=== PATIENT | female | born 1970 | race Caucasian/White ===

== ENCOUNTER → 2017-06-05 | Outpatient (CLI) | payer OTHER ==
[~2017-06-05] VITALS: Ht 154.9 cm; Wt 77.9 kg
[~2017-06-05] MED LIST: ASPIR 8181 MG PO; IBUPROFEN 200200 M1 PO; MOBIC15 MG PO; VOLTAREN GEL 1100 GM TOP
--- NOTE | ~2017-06-05 | HPC ---
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 I have prior treated her for SI mediated and piriformis mediated left-sided pain. That was back in June 2016. She notes that pain is generally well controlled, but she has recurrent pain in right foot. She had prior been seen by Dr. Espinoza Reyes back in March 2015 for some left ankle pain, this right-sided pain is different. She has point tenderness in the right mid foot lateral aspect, she has swelling in this area. She notes it has been painful for about 3-4 months. She states pain is becoming quite uncomfortable to the point she is having trouble walking. She has a small ballottable area compatible with a ganglion cyst. Plantarflexion and dorsiflexion is adequate. Inversion significantly exacerbates pain. Lower extremity strength is otherwise symmetric. ASSESSMENT: Myofascial pain in right foot, concern for ganglion cyst, right mid foot. History of sacroiliac mediated pain, piriformis syndrome and left ankle pain all historic and noncontributory at this time. RECOMMENDATIONS: 1. We will refer to Dr. Ivan Frederick for consideration for surgical intervention regarding the right foot mass (ganglion cyst?). Prescription generated for topical Voltaren gel. 2. Trigger point injection today times 2, right lateral foot. PROCEDURE NOTE: After written informed consent was obtained, the patient was placed in the supine position. Skin overlying the lateral aspect of the foot was cleansed with ChloraPrep. A 25-gauge needle was used to inject 20 mg triamcinolone plus 4 mL of 0.5% preservative-free bupivacaine into and around the trigger points. Ice was applied to the area. The patient was discharged in good and stable condition. Again, we will have her follow up with Dr. Ivan Frederick for more definitive intervention of what appears to be ganglion cyst in this area. By: [id number] Charan Reyes DO /nt
[2017-06-05 12:43] VITALS: BP 129/95
== END | disposition home or self-care (01) ==
LOC: PAIN 07:20
DX: M79.1 Myalgia (principal); M25.571 Pain in right ankle and joints of right foot; R22.41 Localized swelling, mass and lump, right lower limb; M53.3 Sacrococcygeal disorders, not elsewhere classified; G57.00 Lesion of sciatic nerve, unspecified lower limb; Z79.82 Long term (current) use of aspirin; Z88.8 Allergy status to other drugs, medicaments and biological substances

== ENCOUNTER → 2017-11-16 | Outpatient (CLI) | payer OTHER | LOC: RAD 13:26 | DX: Z12.31 Encounter for screening mammogram for malignant neoplasm of breast (principal) ==

== ENCOUNTER → 2018-01-17 | Outpatient (CLI) | payer OTHER | LOC: MRI 07:56 | DX: M25.571 Pain in right ankle and joints of right foot (principal) ==

== ENCOUNTER → 2019-02-14 | Outpatient (CLI) | payer OTHER | LOC: RAD 14:00 | DX: Z12.31 Encounter for screening mammogram for malignant neoplasm of breast (principal) ==

== ENCOUNTER → 2019-07-16 | Outpatient (CLI) | payer OTHER | LOC: CAT 10:16 | DX: Z13.6 Encounter for screening for cardiovascular disorders (principal); E78.00 Pure hypercholesterolemia, unspecified; I25.10 Atherosclerotic heart disease of native coronary artery without angina pectoris ==

== ENCOUNTER → 2020-06-10 | Outpatient (CLI) | payer OTHER | LOC: RAD 09:38 | DX: Z12.31 Encounter for screening mammogram for malignant neoplasm of breast (principal) ==

== ENCOUNTER → 2021-08-20 | Outpatient (CLI) | payer OTHER | LOC: BC 10:53 | PROVIDERS: ATTEND Family Medicine | DX: Z12.31 Encounter for screening mammogram for malignant neoplasm of breast (principal) ==

== ENCOUNTER → 2021-09-21 | Outpatient (CLI) | payer OTHER ==
[2021-09-21 11:55] LABS: URINE BILIRUBIN NEGATIVE (Negative); URINE BLOOD NEGATIVE (Negative); URINE COLOR YELLOW; URINE GLUCOSE-RANDOM* NEGATIVE (Negative); URINE KETONES NEGATIVE (Negative); URINE LEUKOCYTES-REFLEX NEGATIVE (Negative); URINE NITRITE-REFLEX NEGATIVE (Negative); URINE PROTEIN (DIPSTICK) NEGATIVE (Negative); URINE SPECIFIC GRAVITY 1.025 (1.005-1.035); URINE UROBILINOGEN 0.2 E.U./dl (0.2-1.0)
[2021-09-21 11:57] LABS: ABSOLUTE NEUTROPHILS 4.3 thou/uL (1.4-8.2); BASOPHILS 0.4 % (0.0-2.0); EOSINOPHILS 4.6 % (0.0-3.0); HEMATOCRIT 47.5 % (37.0-47.0); LYMPHOCYTES 38.1 % (24.0-44.0); MCH 30.3 pg (26.0-34.0); MCHC 33.7 g/dL (28.0-37.0); MCV 89.6 fL (80.0-100.0); MONOCYTES 6.6 % (1.0-8.0); PLATELET COUNT 320 thou/uL (150-400); POLYS 50.3 % (36.0-66.0); RDW 12.3 % (10.5-14.5); WBC 8.6 thou/uL (4.0-11.0)
[2021-09-21 11:58] LABS: URINE CLARITY HAZY
[2021-09-21 12:16] LABS: ALBUMIN 4.2 g/dL (3.4-5.0); ANION GAP 6 mmol/L (7-16); BUN 21 mg/dL (7-18); CALCIUM 9.7 mg/dL (8.5-10.1); CHLORIDE 105 mmol/L (98-107); CHOLESTEROL 270 mg/dL (<200); CO2 28 mmol/L (21-32); CREATININE 0.9 mg/dL (0.6-1.0); GLUCOSE 86 mg/dL (74-106); HDL CHOLESTEROL 61 mg/dL (>40); LDL CHOLESTEROL 187 mg/dL (<100); POTASSIUM 4.4 mmol/L (3.5-5.1); SGOT 19 U/L (15-37); SGPT 20 U/L (30-65); SODIUM 139 mmol/L (136-145); TC:HDL 4.4 Ratio (Not establshd); TOTAL BILIRUBIN 0.4 mg/dL (0.2-1.0); TRIGLYCERIDE 114 mg/dL (<150); VLDL 23 mg/dL (<40)
== END ==
LOC: LAB 10:23
PROVIDERS: ATTEND Family Medicine
DX: Z00.00 Encounter for general adult medical examination without abnormal findings (principal)

== ENCOUNTER → 2021-11-12 | Outpatient (CLI) | payer OTHER | LOC: MRI 07:42 | PROVIDERS: ATTEND Family Medicine | DX: M50.123 Cervical disc disorder at C6-C7 level with radiculopathy (principal); M50.122 Cervical disc disorder at C5-C6 level with radiculopathy; M50.121 Cervical disc disorder at C4-C5 level with radiculopathy; M47.22 Other spondylosis with radiculopathy, cervical region; M48.02 Spinal stenosis, cervical region ==

== ENCOUNTER → 2021-12-07 | Outpatient (CLI) | payer OTHER ==
[~2021-12-07] VITALS: Ht 154.9 cm; Wt 63.5 kg
[~2021-12-07] MED LIST changes: +ADDERALL 20 MG20 MG PO; +ADDERALL XR 2020 MG PO
--- NOTE | ~2021-12-07 | HPC ---
[facility] [address] [address] PAIN MANAGEMENT CONSULTATION Name: LISA GRANADOS Room #: REG [facility] MSherron.#: [id number] Admission: 12/07/21 Attend Phys: Espinoza Reyes DO Discharge: Date of : 74 Report #: [id number] THIS REPORT FOR: cc: Panchito Polk MD,Espinoza Gallo MD, DO ~ cc: Panchito Polk MD DATE OF SERVICE: 12/07/2021 REFERRING PHYSICIAN: Panchito Polk MD CHIEF COMPLAINT: Left hand numbness. HISTORY OF PRESENT ILLNESS: As you know, the patient is a very pleasant 51-year-old female who reports a longstanding history of progressively worsening left hand pain and numbness and tingling. She indicates that her pain intensity began to increase in 09/2021, again no inciting injury or trauma that had led to symptom development. 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 She sought evaluation through her primary care physician who was also concerned of cervical radiculopathy. The patient was then sent on to imaging where she underwent MRI of the cervical spine. There were some changes noted in the cervical imaging study that prompted a referral on to our clinic as she was not improving with conservative treatment. She has not tried cock-up splints. She has not tried any topical agents to the area. She has not been involved in any formalized physical therapy. She denies injury or trauma to the area that may have caused symptom development. The patient reports her pain is intermittent in nature. She describes the pain as shooting, aching, throbbing, gnawing sharp, tender, numbness and tingling. Places current pain score at 2/10. Daily average anywhere up to 4/10, worst pain has been as 8/10. This is specifically when the patient is utilizing the left upper extremity with flexion of the wrist. She indicates that pain is exacerbated with certain activities, improves with discontinuation of movement of the left wrist. She has been referred to our service to discuss treatment options for left hand numbness and tingling and periodic left forearm numbness and tingling. PAST MEDICAL HISTORY: History of vertigo. PAST SURGICAL HISTORY: 1. Posterior cervical diskectomy. 2. Breast augmentation. [address]. [place] [address] PAIN MANAGEMENT CONSULTATION Name: LISA GRANADOS REMINGTON Room #: REG SHERIF Romero#: [id number] Admission: 12/07/21 Attend Phys: Espinoza Reyes DO Discharge: Date of : 74 Report #: [id number] SOCIAL HISTORY: The patient denies tobacco use. Denies IV or illicit drug use. Admits to an occasional alcohol beverage. She is an process controls technician by [employer]. She is working, not receiving workmen's compensation nor is she trying to obtain disability benefits. She is not in litigation in regards to pain. She is unaccompanied at today's visit. REVIEW OF SYSTEMS: Positive for night sweats, fatigue and weakness, wearing corrective eyewear, blurred and double vision, hearing loss with tinnitus, left hand numbness and tingling from the wrist to the hand itself. All other review of systems negative per 12-point review of systems other than those listed in history of present illness. ALLERGIES: No reported drug allergies. CURRENT MEDICATIONS: Adderall XR 20 mg once a day. IMAGING: MRI cervical spine obtained 11/12/2021 shows C1-C2 unremarkable, C2-C3 unremarkable, C3-C4 unremarkable, C4-C5 shows mild diffuse disk bulge, bilateral uncovertebral degenerative changes, left foraminal area is widely patent. There is mild narrowing of the right neural foramen. C5-C6 shows posterior left focal disk protrusion causing mass effect upon the anterior left aspect of the canal, central canal dimension is maintained. There is narrowing of the neural foramen bilaterally. Uncovertebral degenerative changes noted with moderately severe narrowing. Focal disk protrusion anteriorly on the left, which causes mass effect upon the left neural foramen. C6-C7 shows diffuse disk bulge, asymmetric component, greater to the left. Central canal is maintained. Mild right foraminal encroachment. No left encroachment. C7-T1 unremarkable. PHYSICAL EXAMINATION: VITAL SIGNS: Blood pressure 122/78, pulse is 65, respiratory rate 14 and unlabored. The patient 100% on room air. Height 5 feet 1 inch tall, weight 140 pounds, BMI calculated 26.5. GENERAL: Well-developed, well-nourished, well-hydrated 51-year-old female appearing stated age, pain is rated today at around 2-8/10 depending on activity. HEENT: Normocephalic, atraumatic. Pupils equal, round and responsive. She is wearing a mask in compliance with COVID-19 regulations and hospital policies. LUNGS: Clear, no wheeze, rhonchi or rales. CARDIOVASCULAR: Regular. No appreciable gallop, no rub. ABDOMEN: Soft. EXTREMITIES: Show no clubbing, no cyanosis, no edema. MUSCULOSKELETAL: Upper extremity strength equal and symmetrical 5/5. Muscle bulk and tone is equal and symmetrical in upper extremities including the intrinsic muscles of the hand bilaterally and thenar and hypothenar eminences. 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 Tinel sign is positive on the left, negative [facility] [address] [place] [address] PAIN MANAGEMENT CONSULTATION Name: LISA GRANADOS REMINGTON Room #: REG [facility] Rogelio.#: [id number] Admission: 12/07/21 Attend Phys: Espinoza Reyes DO Discharge: Date of : 74 Report #: [id number] right. Phalen's sign is positive on the left, negative right. Spurling's test is negative bilaterally. She is intact to light touch from C5 through T1 dermatomes. ASSESSMENT: 1. Carpal tunnel of the left upper extremity. 2. Peripheral neuropathy of the left upper extremity. 3. Cervical spondylosis without definitive radiculopathy. 4. Displacement of cervical intervertebral disk without definitive radiculopathy. 5. Neural foraminal stenosis of the cervical spine without definitive radiculopathy. PLAN: 1. Based on today's physical exam, the history the patient provides, the distribution of symptoms the patient is experiencing pain within currently and the provocating factors that make her symptoms worse as well as the descriptors she uses in regards to pain, the likely source of this pain is carpal tunnel syndrome. The patient has been advised that her symptoms do appear to be carpal tunnel in origin by other physicians she has discussed her case with. She has positive Tinel's and Phalen's sign on the left. There is no radicular component to the patient's symptoms that was elicited with physical exam today. The patient is denying any current neck or left upper extremity symptoms and she has had no proximal arm pain, but has had only distal symptoms radiating from the wrist joint towards the hand and then intermittently with retrograde towards the elbow, but not to the upper arm. Given these findings and physical exam and history she has provided, it does appear that her symptoms are related to carpal tunnel syndrome. We would recommend the following treatment. 2. We recommend cock-up splints to be worn in the evening hour on the left upper extremity. She can obtain these cock-up splints from any of her local pharmacies or through [employer]. We recommend she begin that treatment immediately. She can obtain these devices easily [id number]. There is no reason for a prescription to be written. 3. We discussed the possibility of starting medication, though given the findings and physical exam, oral medications might be met with side effects, specifically the neuropathic medications amitriptyline, nortriptyline, Cymbalta, Lyrica or gabapentin. We will recommend topical agents at this point directly to the area that in conjunction with the cock-up splinting should improve the carpal tunnel problem. 4. The patient can apply topical Salonpas or Voltaren 1% diclofenac solution to the area. This should be done likely 3 times a day with a dressing limiting the use of the left hand and flexion of the wrist if possible. She could begin that treatment immediately. 5. We did discuss the possibility of having the patient seek treatment through physical therapy/occupational therapy to help with flexion issues on the left upper extremity. She wishes to consider that option. She does not want to [address] [place] [address] PAIN MANAGEMENT CONSULTATION Name: LISA GRANADOS Room #: REG SHERIF Romero#: [id number] Admission: 12/07/21 Attend Phys: Espinoza Reyes DO Discharge: Date of : 74 Report #: [id number] trial a formalized treatment until she has utilized cock-up splints and topical agents. 6. We did discuss with the patient the possibility of undergoing a surgery to address the carpal tunnel area. This will be done quite easily with release of the flexor retinaculum. She will consider this option if her symptoms do not improve with conservative treatment. 7. We wish to thank Dr. Polk for the referral of the patient to our clinic. We will keep you apprised of response to treatment as we address her left upper extremity carpal tunnel syndrome and any cervical radiculopathy that might develop from the findings of her recent MRI of the cervical spine. Again, we wish to thank you for the opportunity to see the patient in consultation. By: [id number] Espinoza Reyes DO /nt
[2021-12-07 08:22] VITALS: BP 122/78
--- NOTE | 2021-12-07 08:44 | NUR ---
Pain Clinic Assessment: 1. History of Osteoarthritis: NECK DDD History of Rheumatoid Arthritis: DENIES 2. Height: 5 ft. 1 in. 154.9 cm. Weight: 140.0 lb. oz. 63.504 kg. Patient's BMI: 26.5 3. Vital Signs: BP: 122/78 Pulse: 65 Resp: 14 Temp: 02 Sat: 100 ECG Mon: 4. Pain Intensity: 2 TO 8 5. Fall Risk: Dizziness: N Needs help standing or walking: N Fallen in the last 3 months: N Fall risk comments: 6. Patient on Blood Thinner: None 7. History of Hypertension: N 8. Opioid Therapy greater than 6 weeks: N Opiate Contract Signed: 9. Risk Assessment Tool Provided: LOW-3 10. Functional Assessment Tool: 11. Recreational Drug Use: Never Drug Type: Tobacco Use: Former Smoker Tobacco Type: Amount or Packs/day: How Many Years: Alcohol Use: Yes Frequency: Monthly Quant: 2
== END ==
LOC: PAIN 11-30 08:23
PROVIDERS: ATTEND Anesthesiology Pain Medicine
DX: M47.812 Spondylosis without myelopathy or radiculopathy, cervical region (principal); M48.02 Spinal stenosis, cervical region; M50.20 Other cervical disc displacement, unspecified cervical region; Z79.899 Other long term (current) drug therapy; G56.02 Carpal tunnel syndrome, left upper limb; G56.92 Unspecified mononeuropathy of left upper limb